=== PATIENT | male | born 1960 | race Caucasian/White ===

== ENCOUNTER 2024-02-24 19:42 | Emergency (ER) | payer MEDICARE, SELFPAY ==
[2024-02-24 19:45] VITALS: BP 182/83; PULSE 82; TEMP 36.5; O2SAT 98
[2024-02-24 19:51] VITALS: BP 160/80
--- NOTE | 2024-02-24 19:58 | ED_ITS ---
HPI - Ear Problem General Chief complaint: Ear Stated complaint: Foreign Object in Ear Time Seen by Provider: 02/24/24 19:51 Source: patient Mode of arrival: walk-in History of Present Illness HPI Narrative: Patient is a 63-year-old male who presents to the emergency department for removal of a rubber earbud from his right ear canal. He states that he was using headphones when the earbud came off in the ear canal, he and his both attempted to remove it with tweezers but he believes they pushed it further down. No other associated focal medical complaints at this time. Related Data Allergies Allergy/AdvReac Type Severity Reaction Status Date / Time No Known Drug Allergies Allergy Verified 02/24/24 19:48 Review of Systems ROS Constitutional Denies: fever or chills Ears, nose, mouth, and throat Denies: throat pain Respiratory Denies: shortness of breath Gastrointestinal Denies: nausea or vomiting Integumentary/Breast Denies: rash Neurological Denies: numbness in extremities or weakness in extremities Hematologic/Lymphatic Denies: easy bruising or easy bleeding Exam Narrative Exam Narrative: Gen.: Awake, alert, in no distress Head: Normocephalic, atraumatic ENT: Moist mucous membranes, rubber foreign body noted in the right external canal Respiratory: No respiratory distress Extremities: Moves extremities equally Psych: Normal mood and affect Neuro: No focal neuro deficit Skin: Warm, dry, intact Constitutional Vital Signs, click to edit/add: Last Vital Signs Temp 97.7 F 02/24/24 19:45 Pulse 82 02/24/24 19:45 Resp 18 02/24/24 19:45 BP 182/83 H 02/24/24 19:45 Pulse Ox 98 02/24/24 19:45 O2 Del Method Room Air 02/24/24 19:45 Course Vital Signs Vital signs: Vital Signs Temperature 97.7 F 02/24/24 19:45 Pulse Rate 82 02/24/24 19:45 Respiratory Rate 18 02/24/24 19:45 Blood Pressure 182/83 H 02/24/24 19:45 Pulse Oximetry 98 02/24/24 19:45 Oxygen Delivery Method Room Air 02/24/24 19:45 Temperature 97.7 F 02/24/24 19:45 Pulse Rate 82 02/24/24 19:45 Respiratory Rate 18 02/24/24 19:45 Blood Pressure 182/83 H 02/24/24 19:45 Pulse Oximetry 98 02/24/24 19:45 Oxygen Delivery Method Room Air 02/24/24 19:45 Medical Decision Making MDM Narrative Medical decision making narrative: Loop and tweezers were used to remove the earbud without difficulty. No bleeding or drainage, external canal was reexamined, no residual foreign body. Follow-up PCP and return to the ER if symptoms change or worsen SUPERVISED APC VISIT, PHYSICIAN ATTESTATION: Based on the medical record the care appears appropriate. ? Medical Records Medical records reviewed: Yes I reviewed the patient's medical records Discharge Plan Discharge Chief Complaint: Ear Clinical Impression: Foreign body in right ear Patient Disposition: Home, Self-Care Time of Disposition Decision: 19:57 Condition: Good Print Language: Armenian Instructions: Ear Foreign Body (ED) Referrals: MIRANDA ORELLANA [Primary Care Provider] - 1 week Discharge Date/Time: 02/24/24 20:08
== END 2024-02-24 20:08 | disposition home or self-care (01) ==
PROVIDERS: Emergency Provider Internal Medicine; PCP Family Medicine
DX: T16.1XXA Foreign body in right ear, initial encounter (principal); W44.G1XA Audio device entering into or through a natural orifice, initial encounter
CPT/HCPCS: 69200; 99281

== ENCOUNTER 2024-05-03 14:23 | Outpatient (RCR) | payer MEDICARE, SELFPAY | END 2024-05-30 14:51 | disposition home or self-care (01) | LOC: PT 14:23 | PROVIDERS: PCP Family Medicine; Visit Provider Family Medicine | DX: M47.816 Spondylosis without myelopathy or radiculopathy, lumbar region (principal); M54.16 Radiculopathy, lumbar region | CPT/HCPCS: 97110; 97112; 97113; 97140; 97163 ==

== ENCOUNTER 2024-05-31 09:06 | Outpatient (RCR) | payer MEDICARE, SELFPAY | END 2024-06-01 08:36 | disposition home or self-care (01) | LOC: PT 09:06 | PROVIDERS: PCP Family Medicine; Visit Provider Family Medicine | DX: M54.50 Low back pain, unspecified (principal); M54.16 Radiculopathy, lumbar region ==

== ENCOUNTER 2025-02-27 09:36 | Outpatient (OUT) | payer MEDICARE, SELFPAY ==
--- OUTSIDE RECORDS SUMMARY | 2025-02-21 08:00 | XMS_ITS | Encounter Summary ---
Author Organization [facility] Address [address] [facility] [place] [address] Care Team Providers Care Exterior Designer Name Role Phone Frank Rahman Primary Care Provider [phone] Concepcion Dixon [facility] Unavailable [phone] Reason for Visit * Reason Comments Follow-up Encounter Details Date Type Department Care Team (Late Contact Info) Description 02/21/2025 8:00 AM EDT Social Work [facility] [address] [place] [address] Concepcion Dixon, [facility] [address] [facility] [address] [place] [address] Moderate episode of recurrent major depressive disorder (HCC); TRENT (generalized anxiety disorder) Social History Tobacco Use Types Packs/Day Years Used Date Smoking Tobacco: Never Alcohol Use Standard Drinks/Week Comments Never 0 (1 standard drink = 0.6 oz pur e alcohol) Sex and Gender Information Value Date Recorded Sex Assigned at Male 03/19/2023 8:53 AM EDT Legal Sex Male 6:34 PM EDT Gender Identity Male 03/19/2023 8:53 AM EDT Sexual Orientation Not on file documented as of this encounter Plan of Treatment Upcoming Encounters Date Type Department Care Team (Late Contact Info) Description 03/02/2025 8:00 AM EDT Office Visit [facility]UL[facility]NA Jaime Neurology [address] [facility] [address] [place] [address] Sebastian Weiss MD [address] [facility] [address] [address] 03/06/2025 2:00 PM EDT Social Work [facility] [address] [facility] [address] [place] [phone] Concepcion Dixon [facility] [address] [facility] [address] [place] [address] documented as of this encounter Visit Diagnoses Diagnosis Moderate episode of recurrent major depressive disorder (HCC) TRENT (generalized anxiety disorder) Generalized anxiety disorder documented in this encounter Care Teams Exterior Designer Relationship Specialty Start Date End Date Frank Rahman [address] [facility] [place] [address] PCP - General Family Medicine 09/17/23 Concepcion Dixon [facility] [address] [facility] [address] [place] [address] Job Compositor Behavioral Health 10/10/24 documented as of this encounter
--- OUTSIDE RECORDS SUMMARY | 2025-02-21 08:02 | XMS_ITS ---
Author Name Auto Generated Organization OHIP Support Name Relationship Address Phone SHANKS, JAM Next of Kin [facility] [place] [address] + SHANKS, JAM Next of Kin [facility] [place] [address] + SHANKS, JAM Next of Kin [facility] [place] [address] + SHANKS, JAM Next of Kin [facility] [place] [address] + SHANKS, JAM Next of Kin [facility] [place] [address] + SHANKS, JAM Next of Kin [address] [place] [address] [place] [address] + SHANKS, JAM Next of Kin [address] [place] [address] [place] [address] + SHANKS, JAM Next of Kin [facility] [place] [address] + SHANKS, JAM Next of Kin [facility] [place] [address] + SHANKS, JAM Next of Kin [facility] [place] [address] + SHANKS, JAM Next of Kin [facility] [place] [address] + SHANKS, JAM Next of Kin [facility] [place] [address] + Care Team Providers Care Identification Officer Name Role Phone MITCH SCHERER Attending Unavailable KEREN BASILIO Attending Unavailable MITCH SCHERER Referring Unavailable KEREN BASILIO Attending Unavailable KEREN BASILIO Attending Unavailable MITCH SCHERER Attending Unavailable KEREN BASILIO Attending Unavailable KEREN BASILIO Attending Unavailable KEREN BASILIO Attending Unavailable KEREN BASILIO Attending Unavailable KEREN BASILIO Attending Unavailable KEREN BASILIO Attending Unavailable KEREN BASILIO Attending Unavailable PROBLEMS No Problem Records Found PROCEDURES No Procedure Records Found RESULTS No Result Records Found ALLERGIES No Allergies Records Found ENCOUNTERS ADMIT/DISCHARGE ACCOUNT NUMBER ADMITTING ENCOUNTER CLASS LOCATION SOURCE 02/21/2025/ 5 [id number] Ambulatory Building:[facility] 02/07/2025/ 5 [id number] Ambulatory Building:[facility] 01/31/2025/ 5 [id number] Ambulatory Building:[facility] 01/04/2025/ 5 [id number] Ambulatory Building:[facility] 12/27/2024/ 5 [id number] Ambulatory Building:[facility] 12/12/2024/ 5 [id number] Ambulatory Building:[facility] 12/06/2024/ 5 [id number] Ambulatory Building:[facility] 11/29/2024/ 5 [id number] Ambulatory Building:[facility] 11/08/2024/ 5 [id number] Ambulatory Building:[facility] 10/19/2024/ 5 [id number] Ambulatory Building:[facility] 10/10/2024/ 5 [id number] Ambulatory Building:[facility] 08/30/2024/ 5 [id number] Ambulatory Building:[facility] PAYERS ENCOUNTER GUARANTOR PAYER SUBSCRIBER SOURCE 02/21/2025 GHAZALA MONTERO: [id number] [place] [address]Tcm: () Primary Insurance:[facility] MEDICARE ADVANTAGEPoly Number: [id number] Date:2023-05-31 GHAZALA MONTERO: [id number] [place], [facility] [facility] EPIC 02/07/2025 GHAZALA SHANKSDOB: [place] [id number]: (HP) Primary Insurance:AET[employer] MEDICARE ADVANTAGEPolicy Number: [id number] Date:2023-05-31 GHAZALA SHANKSDOB: [id number] [place] [id number] [facility] EPIC 01/31/2025 GHAZALA Merino FIELDSDOB: [place] [id number]: (HP) Primary Insurance:AETNA MEDICARE ADVANTAGEPolicy Number: [id number] Date:2023-05-31 GHAZALA SHANKSDOB: [id number] [place] [id number] [facility] EPIC 01/04/2025 GHAZALA SHANKSDOB: [place] [id number]: (HP) Primary Insurance:AETNA MEDICARE ADVANTAGEPolicy Number: [id number] Date:2023-05-31 GHAZALA SHANKSDOB: [id number] [place] [id number] [facility] EPIC 12/27/2024 GHAZALA SHANKSDOB: [place] [id number]: (HP) Primary Insurance:AETNA MEDICARE ADVANTAGEPolicy Number: [id number] Date:2023-05-31 GHAZALA SHANKSDOB: [id number] [place] [id number] [facility] EPIC 12/12/2024 GHAZALA SHANKSDOB: [place] [id number]: (HP) Primary Insurance:AETNA MEDICARE ADVANTAGEPolicy Number: [id number] Date:2023-05-31 GHAZALA SHANKSDOB: [id number] JUN KARLASHLEY, [facility] [facility] EPIC 12/06/2024 GHAZALA SHANKSDOB: [place] [id number]: (HP) Primary Insurance:AETNA MEDICARE ADVANTAGEPolicy Number: [id number] Date:2023-05-31 GHAZALA SHANKSDOB: [id number] [place], [facility] [facility] EPIC 11/29/2024 GHAZALA SHANKSDOB: [place] [id number]: (HP) Primary Insurance:AETNA MEDICARE ADVANTAGEPolicy Number: [id number] Date:2023-05-31 GHAZALA SHANKSDOB: [id number] [place], [facility] [facility] EPIC 11/08/2024 GHAZALA SHANKSDOB: [place] [id number]: (HP) Primary Insurance:AETNA MEDICARE ADVANTAGEPolicy Number: [id number] Date:2023-05-31 GHAZALA SHANKSDOB: [id number] [place] [id number] [facility] EPIC 10/19/2024 GHAZALA Angelique SHANKSDOB: [place] [id number]: (HP) Primary Insurance:AETNA MEDICARE ADVANTAGEPolicy Number: [id number] Date:2023-05-31 GHAZALA Angelique SHANKSDOB: [id number] [place] [id number] [facility] EPIC 10/10/2024 GHAZALA PAKB: [place] [address]Joi: (HP) Primary Insurance:AETNA MEDICARE ADVANTAGEPolicy Number: [id number] Date:2023-05-31 GHAZALA PAKB: [id number] [place] [address] [facility] 08/30/2024 GHAZALA PAKB: [place] [address]Rev: (HP) Primary Insurance:AETNA MEDICARE ADVANTAGEPolicy Number: [id number] Date:2023-05-31 GHAZALA PAKB: [id number] [place] [address] [facility] EPIC
--- OUTSIDE RECORDS SUMMARY | 2025-02-27 09:40 | XMS_ITS | Encounter Summary ---
Author Organization [facility] Address [address] [place] [address] Care Team Providers Care Geospatial Information Technologist Name Role Phone Frank Rahman Primary Care Provider [phone] Concepcion Dixon [facility] Unavailable [phone] Encounter Details Date Type Department Care Team (Late st Contact Info) Description 02/21/2025 Bamboo flowsheet [facility] [address] [place] [address] Concepcion Dixon, [facility] [address] [place] [address] Social History Tobacco Use Types Packs/Day Years [...] Office Visit JULIANA Jaime Neurology [address] [place] [address] Sebastian Weiss MD [address] [facility] [address] [place] [phone] 03/06/2025 2:00 PM EDT Social Work [facility] [place] [facility] [address] [place] [address] Concepcion Dixon, [facility] [address] [place] [address] documented as of this encounter Visit Diagnoses Not on filedocumented in this encounter Care Teams Geospatial Information Technologist Relationship Specialty Start Date End Date Frank Rahman [address] [facility] [place] [address] PCP - General Family Medicine 09/17/23 Concepcion Dixon, [facility] [address] [place] [address] Per Assessment Nurse Behavioral Health 10/10/24 documented as of this encounter
--- OUTSIDE RECORDS SUMMARY | 2025-02-27 09:40 | XMS_ITS | Clinical Summary ---
Author Organization [facility] Healthcare Address [address] [place] [address] Care Team Providers Care Project Systems Engineer Name Role Phone Frank Rahman Primary Care Provider Concepcion Dixon [facility] Unavailable [phone] Allergies Active Allergy Reactions Criticality Noted Date Comments Bee Venom 06/21/2008 Medications Trintellix 20 MG tablet TAKE 1 TABLET ONCE DAILY FOR EMOTIONS Active pioglitazone (Actos) 30 MG tablet Take 30 mg by mouth in the morning. for diabetes. Active metFORMIN (Glucophage) 1000 MG tablet Take 1,000 mg by mouth in the morning and 1,000 mg before bedtime. for diabetes. Active Dextromethorpha n-quiNIDine (Nuedexta) 20-10 MG capsule 1 capsule every 12 (twelve) hours. Active amLODIPine (Norvasc) 5 MG tablet Take 5 mg by mouth in the morning and 5 mg before bedtime. for blood pressure. Active Wellbutrin XL 300 MG 24 hr tablet 03/16/20 23 Active buPROPion XL (Wellbutrin XL) 150 MG 24 hr tablet Take 150 mg by mouth Daily Do not crush, chew, or split. Active glimepiride (Amaryl) 4 MG tablet TAKE 1 TABLET BY MOUTH IN THE MORNING FOR DIABETES 10/13/19 24 Active sildenafil (Viagra) 100 MG tablet TAKE 1 TABLET 1 HOUR BEFORE INTERCOURSE 12/02/19 24 Active losartan (Cozaar) 100 MG tabletIndicatio ns:Hypertension , unspecified type Take 1 tablet (100 mg) by mouth Daily 90 tablet 3 12/22/19 24 Active QUEtiapine (SEROquel) 25 MG tabletIndicatio ns:Primary insomnia TAKE 1 TABLET BY MOUTH AT BEDTIME 90 tablet 3 07/19/19 25 Active rosuvastatin (Crestor) 5 MG tablet TAKE 1 TABLET BY MOUTH THREE TIMES A WEEK FOR CHOLESTEROL 08/05/19 25 Active ergocalciferol (Vitamin D2) 1.25 MG (30535 UT) capsule TAKE 2 CAPSULES BY MOUTH ONCE A WEEK 06/12/19 25 Active memantine (Namenda) 10 MG tabletIndicatio ns:Mild cognitive impairment TAKE 1 TABLET BY MOUTH AT BEDTIME 90 tablet 12/12/19 25 Active thiamine (Vitamin B-1) 100 MG tabletIndicatio ns:Acute relapsing multiple sclerosis,Mild cognitive impairment Take 1 tablet (100 mg) by mouth Daily 90 tablet 3 12/28/19 25 026 Active carBAMazepine (TEGretol) 200 MG tabletIndicatio ns:Intention tremor TAKE 1 TABLET BY MOUTH AT BEDTIME 90 tablet 3 12/28/19 25 Active MAGnesium-Oxide 400 (240 Mg) MG tabletIndicatio ns:Acute relapsing multiple sclerosis,Inten tion tremor,Inflamma tory and toxic neuropathy (HCC) Take 1 tablet (400 mg) by mouth at bedtime 90 tablet 3 12/28/19 25 026 Active gabapentin (Neurontin) 300 MG capsuleIndicati ons:Polyneuropa thy TAKE 1 CAPSULE BY MOUTH IN THE MORNING, 1 CAPSULE AT NOON, 1 CAPSULE IN THE EVENING AND 1 CAPSULE BEFORE BEDTIME 360 capsule 01/16/20 25 Active fingolimod (Gilenya) 0.5 MG capsuleIndicati ons:Multiple sclerosis Take 1 capsule by mouth once daily 30 capsule 11 01/23/20 25 Active droxidopa (Northera) 100 MG capsuleIndicati ons:Dizziness Take 1 capsule (100 mg) by mouth Daily 30 capsule 11 01/25/20 25 Active rOPINIRole (Requip) 1 MG tabletIndicatio ns:Acute relapsing multiple sclerosis,Infla mmatory and toxic neuropathy (HCC),Restless leg TAKE 1/2 (ONE-HALF) TABLET BY MOUTH AT BEDTIME 45 tablet 02/24/20 25 025 Active rOPINIRole (Requip) 1 MG tabletIndicatio ns:Acute relapsing multiple sclerosis,Infla mmatory and toxic neuropathy (HCC),Restless leg TAKE 1/2 (ONE-HALF) TABLET BY MOUTH AT BEDTIME 45 tablet 11/28/19 25 025 Discontinued Active Problems Problem Noted Date Diagnosed Date Anxiety and depression 10/10/2024 TRENT (generalized anxiety disorder) 10/10/2024 Moderate episode of recurrent major depressive d isorder 10/10/2024 Acute hemorrhagic cystitis 09/17/2023 CRISTÓBAL (acute kidney injury) 09/17/2023 Dehydration 09/17/2023 Hypertension 09/17/2023 Hypoxia 09/17/2023 Immunosuppressed status 09/17/2023 Lumbar radiculopathy 09/17/2023 Pleuritic chest pain 09/17/2023 Pneumonia due to COVID-19 virus 09/17/2023 Type 2 diabetes mellitus 09/17/2023 Urethritis 09/17/2023 Diabetic autonomic neuropath y associated with diabetes mellitus due to underlying condition 03/20/2023 Memory loss 03/18/2023 Insomnia 03/18/2023 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 [address] [place] [phone] Chari Denney, LOCOMOTIVE SUPERVISOR Restless leg (Primary Dx); Acute relapsing multiple sclerosis (HCC); Inflammatory and toxic neuropathy (HCC) 02/21/2025 8:00 AM EDT Social Work [facility] [address] [place] [address] Concepcion Dixon, [facility] Moderate episode of recurrent major depressive disorder (HCC); TRENT (generalized anxiety disorder) 02/21/2025 Bamboo flowsheet [facility] [address] [place] [address] Concepcion Dixon, [facility] 02/21/2025 Travel 02/07/2025 8:00 AM EDT Social Work [facility] [address] [place] [address] [facility]cepcion Dixon[facility] Moderate episode of recurrent major depressive disorder (HCC); TRENT (generalized anxiety disorder) 02/07/2025 Bamboo flowsheet [facility] [address] [place] [address] Concepcion Dixon, LPCC 02/07/2025 Travel 01/31/2025 8:00 AM EDT Social Work [facility] [address] [place] [address] Concepcion Dixon, [facility] Moderate episode of recurrent major depressive disorder (HCC); TRENT (generalized anxiety disorder) 01/31/2025 Bamboo flowsheet [facility] [address] [place] [address] Concepcion Dixon, [facility] 01/31/2025 Travel 01/24/2025 Telephone [facility] [address] [place] [address] Sebastian Weiss MD 01/23/2025 Refill [facility] [address] [facility] [address] [place] [address] Chari Denney NP Dizziness (Primary Dx) 01/22/2025 Refill [facility] [address] [place] [address] Sebastian Weiss MD Multiple sclerosis (HCC) 01/20/2025 Refill [facility] [address] [place] [address] Chari Denney NP Dizziness 01/14/2025 Refill [facility] [address] [place] [address] Chari Denney NP Dizziness (Primary Dx) 01/14/2025 Refill [facility] [address] [place] [address] Sebastian Weiss MD Polyneuropathy 01/04/2025 9:00 AM EDT Social Work [facility] [address] [place] [address] Concepcion Dixon, LP[facility] Moderate episode of recurrent major depressive disorder (HCC); TRENT (generalized anxiety disorder) 01/04/2025 Bamboo flowsheet [facility] [address] [place] [address] Concepcion Dixon, LPCC 01/04/2025 Travel 12/27/2024 9:00 AM EDT Social Work [facility] [address] [place] [address] Concepcion Dixon, LPCC Moderate episode of recurrent major depressive disorder (HCC); TRENT (generalized anxiety disorder) 12/27/2024 Bamboo flowsheet [facility] [address] [place] [address] Concepcion Dixon, LPCC 12/27/2024 Travel 12/26/2024 Refill [facility] [address] [place] [address] Sebastian Weiss MD Acute relapsing multiple sclerosis (HCC); Mild cognitive impairment; Intention tremor; Inflammatory and toxic neuropathy (HCC) 12/25/2024 Refill [facility] [address] [place] [address] Sebastian Weiss MD Multiple sclerosis (HCC) (Primary Dx) 12/12/2024 1:00 PM EDT Social Work [facility] [address] [place] [address] Concepcion Dixon, [facility] Moderate episode of recurrent major depressive disorder (HCC); TRENT (generalized anxiety disorder) 12/12/2024 Travel 12/09/2024 Refill [facility] [address] [place] [address] Sebastian Weiss MD Mild cognitive impairment (Primary Dx) 12/06/2024 9:00 AM EDT Social Work [facility] [address] [place] [address] Concepcion Dixon, [facility] Moderate episode of recurrent major depressive disorder (HCC); TRENT (generalized anxiety disorder) 12/06/2024 Bamboo flowsheet [facility] [address] [place] [address] Concepcion Dixon, [facility] 12/06/2024 Travel 12/05/2024 Refill [facility] [address] [place] [address] Sebastian Weiss MD Multiple sclerosis (HCC) (Primary Dx) 11/29/2024 10:40 AM EDT [facility] [address] [place] [address] Sebastian Weiss MD Acute relapsing multiple sclerosis (HCC) (Primary Dx); Dysautonomia orthostatic hypotension syndrome 11/29/2024 Orders Only [facility] [address] [place] [address] Sebastian Weiss MD Multiple sclerosis (HCC) (Primary Dx) 11/29/2024 Bamboo flowsheet [facility] [address] [facility] [address] Sebastian Weiss MD 11/29/2024 Travel from Last 3 Months Family History Medical History Relation Name Comments Stomach cancer Father Melanoma Neg Hx Relation Name Status Comments Father Social History Tobacco Use Types Packs/Day Years Used Date Smoking Tobacco: Never Tobacco Cessation:Counseling Given: Not Answered Alcohol Use Standard Drinks/Week Comments Never 0 (1 standard drink = 0.6 oz pur e alcohol) Sex and Gender Information Value Date Recorded Sex Assigned at Male 03/19/2023 8:53 AM EDT Legal Sex Male 6:34 PM EDT Gender Identity Male 03/19/2023 8:53 AM EDT Sexual Orientation Not on file Last Filed Vital Signs Vital Sign Reading Time Taken Comments Blood Pressure 134/82 11/29/2024 10:55 AM EDT Pulse - - Temperature - - Respiratory Rate - - Oxygen Saturation - - Inhaled Oxygen Concentration - - Weight 112 kg (248 lb) 11/29/2024 10:55 AM EDT Height 177.8 cm (5' 10 ) 11/29/2024 10:55 AM EDT Body Mass Index 35.58 11/29/2024 10:55 AM EDT Plan of Treatment Upcoming Encounters Date Type Department Care Team (Late st Contact Info) Description 03/02/2025 8:00 AM EDT [facility] [address] [facility] [address] [place] [address] Sebastian Weiss MD [address] [facility] [address] [id number] 03/06/2025 2:00 PM EDT Social Work [facility] [address] [place] [address] Concepcion Dixon, [facility] [address] [place] [address] Health Maintenance Due Date Last Done Comments CT Colonography 1962 Colonoscopy 1962 Colorectal Cancer Screening 1962 FIT-DNA 1962 FIT 1962 FOBT 1962 Sigmoidoscopy 1962 Influenza Vaccine (#1) 2025 02/12/2021, 2014 Insurance MEDICARE [employer] MEDICARE ADVANTAGE Care Teams Project Systems Engineer Relationship Specialty Start Date End Date Frank Rahman [address] [place] [address] PCP - General Family Medicine 09/17/23 Concepcion Dixon, [facility] [address] [place] [address] [place] [address] Nanotechnology Engineering Technician Behavioral Health 10/10/24
--- OUTSIDE RECORDS SUMMARY | 2025-02-27 09:40 | XMS_ITS | Clinical Summary ---
Author Organization [facility] Address [address] [place] [address] Phone Care Team Providers Care Telephone Messenger Name Role Phone Frank Rahman DO Primary Care Provider [phone] Social History Tobacco Use Types Packs/Day Years Used Date Smoking Tobacco: Never Assessed Sex and Gender Information Value Date Recorded Sex Assigned at Not on file Legal Sex Male 10:54 AM EST Gender Identity Not on file Sexual Orientation Not on file Plan of Treatment Not on file Care Teams Telephone Messenger Relationship Specialty Start Date End Date Frank Rahman DO [address] [facility] [place] [address] PCP - General 03/27/19
--- OUTSIDE RECORDS SUMMARY | 2025-02-27 09:40 | XMS_ITS | Encounter Summary ---
Author Organization [facility] Address [address] [place] [address] Care Team Providers Care Hydraulic Lift Driver Name Role Phone Frank Rahman Primary Care Provider [phone] Concepcion Dixon [facility] Unavailable Encounter Details Date Type Department Care Team (Latest Contact Info) Description 02/21/2025 Travel Social History Tobacco Use Types Packs/Day Years [...] Office Visit [facility] [address] [place] [address] Sebastian Weiss MD [address] [facility] [address] [place] [id number] 03/06/2025 2:00 PM EDT Social Work [facility] [address] [place] [address] Concepcion Dixon, [facility] [address] [place] [address] documented as of this encounter Visit Diagnoses Not on filedocumented in this encounter Care Teams Hydraulic Lift Driver Relationship Specialty Start Date End Date Frank Rahman [address] [facility] [place] [address] PCP - General Family Medicine 09/17/23 Concepcion Dixon, [facility] [address] [place] [address] Plaster Die Maker Behavioral Health 10/10/24 documented as of this encounter
--- OUTSIDE RECORDS SUMMARY | 2025-02-27 09:40 | XMS_ITS | Encounter Summary ---
Author Organization [facility] Address [address] [facility] [address] Care Team Providers Care Nursing Unit Coordinator Name Role Phone Frank Rahman Primary Care Provider [phone] [facility]ion [facility] Un[facility] [phone] Reason for Visit * Reason Comments Med Refill Encounter Details Date Type Department Care Team (Late Contact Info) Description 02/23/2025 Refill [facility] [address] [facility] [address] [place] [phone] Chari Denney, [facility] [address] [place] [phone] Restless leg (Primary Dx); Acute relapsing multiple sclerosis (HCC); Inflammatory and toxic neuropathy (HCC) Social History Tobacco Use Types Packs/Day Years [...] Office Visit [facility] [address] [facility] [address] [place] [address] Sebastian Weiss MD [address] [facility] [address] [address] 03/06/2025 2:00 PM EDT Social Work [facility] [place] [facility] [address] [place] [phone] Concepcion Dixon, [facility] [address] [place] [address] documented as of this encounter Visit Diagnoses Diagnosis Restless leg- Primary Restless legs syndrome (RLS) Acute relapsing multiple sclerosis Multiple sclerosis Inflammatory and toxic neuropathy (HCC) documented in this encounter Care Teams Nursing Unit Coordinator Relationship Specialty Start Date End Date Frank Rahman [address] [facility] [place] [address] PCP - General Family Medicine 09/17/23 Concepcion Dixon, [facility] [address] [place] [address] Instrument Mechanic Weapons System Behavioral Health 10/10/24 documented as of this encounter
[2025-02-27 10:02] LABS: Hematocrit 39.9 % (42.0-54.0); Hemoglobin 13.8 g/dL (14.0-18.0); Mean Corpuscular HGB Conc 34.6 g/dL (29.9-35.2); Mean Corpuscular Hemoglobin 29.6 pg (25.9-34.0); Mean Corpuscular Volume 85.4 fL (80.0-94.0); Platelet Count 430 10^3/uL (150-450); Red Blood Count 4.67 10^6/uL (4.70-6.10); White Blood Count 4.9 10^3/uL (4.0-11.0)
[2025-02-27 10:26] LABS: Alanine Aminotransferase 28 U/L (16-63); Albumin Globulin Ratio 1.1; Albumin Level 3.6 g/dL (3.4-5.0); Alkaline Phosphatase 191 U/L (46-116); Anion Gap 15.3; Aspartate Amino Transferase 9 U/L (15-37); Blood Urea Nitrogen 12.0 mg/dL (7.0-18.0); Calcium 8.6 mg/dL (8.5-10.1); Carbon Dioxide 26.2 mmol/L (21.0-32.0); Chloride 99 mmol/L (98-107); Estimated GFR (African America >60 (>=60 mL/min/1.73m^2); Estimated GFR (Non-African Ame >60 (>=60 mL/min/1.73m^2); Globulin 3.3 g/dL; Glucose 416 mg/dL (74-106); Potassium 4.5 mmol/L (3.5-5.1); Sodium 136 mmol/L (136-145); Total Protein 6.9 g/dL (6.4-8.2)
[2025-02-27 11:23] LABS: Basophils Abs Manual 0.00 10^3/uL (0.00-0.10); Basophils Percent Manual 0.0 % (0.2-2.0); Eosinophils Absolute Manual 0.19 10^3/uL (0.00-0.70); Eosinophils Percent Manual 4.0 % (0.9-7.0); Lymphocytes Absolute Manual 0.39 10^3/uL (1.20-3.80); Lymphocytes Percent Manual 8.0 % (20.5-60.0); Monocytes Absolute Manual 0.49 10^3/uL (0.30-0.80); Monocytes Percent Manual 10.0 % (1.7-12.0); Segmented Neut Absolute Manual 3.82 10^3/uL (1.4-6.5); Segmented Neutrophils % Manual 78.0 (43.0-75.0)
== END 2025-02-27 09:37 | disposition home or self-care (01) ==
LOC: LAB 09:38
PROVIDERS: PCP Family Medicine; Visit Provider Psychiatry & Neurology Neurology
DX: G35 Multiple sclerosis (principal)
CPT/HCPCS: 36415; 80053; 85007; 85027